=== PATIENT | female | born 2000 ===

== ENCOUNTER 2019-03-01 12:20 | Emergency (ER) | payer OTHER ==
[~2019-03-01] VITALS: Ht 165.1 cm; Wt 99.8 kg
[2019-03-01] MEDS ORDERED: Ocuflox5 ML RIGHTEYE (13:06)
== END 2019-03-01 13:13 | disposition home or self-care (01) ==
LOC: ER 12:20
DX: S05.01XA Injury of conjunctiva and corneal abrasion without foreign body, right eye, initial encounter (principal); Z87.891 Personal history of nicotine dependence; X58.XXXA Exposure to other specified factors, initial encounter
CPT/HCPCS: 99282